=== PATIENT | female | born 1975 | race African-American/Black ===

== ENCOUNTER 2020-05-25 19:24 | Emergency (ER) | payer OTHER, BC ==
[~2020-05-25] VITALS: Ht 160 cm; Wt 112.2 kg
[~2020-05-25 19:24] MED LIST: CIPRO500 MG OR; FLEXERIL OR; MEDDOSEPAK PO; MULTIVITAMI1 PO; NAPROSYN500 MG OR; NO MEDS; NORCO1 TA1 PO; PYRIDIUM200 MG OR; ULTRAM50 M1 OR
[2020-05-25] MEDS ORDERED: MOTRIN800 MG PO (20:43)
[2020-05-25 20:55] VITALS: BP 155/80
== END 2020-05-25 20:55 | disposition home or self-care (01) | DRG 605 ==
LOC: ED 19:24
DX: S40.011A Contusion of right shoulder, initial encounter (principal); S40.021A Contusion of right upper arm, initial encounter; I10 Essential (primary) hypertension; V03.00XA Pedestrian on foot injured in collision with car, pick-up truck or van in nontraffic accident, initial encounter; Y99.0 Civilian activity done for income or pay; Y92.481 Parking lot as the place of occurrence of the external cause

== ENCOUNTER 2020-05-27 18:33 | Emergency (ER) | payer OTHER, BC ==
[~2020-05-27] VITALS: Ht 160 cm; Wt 111.8 kg
[~2020-05-27 18:33] MED LIST changes: +MOTRIN800 MG PO
[2020-05-27] MEDS ORDERED: ORPHENADRINE100 MG PO (19:13)
[2020-05-27] MEDS ORDERED: TORADOL PO (19:13)
[2020-05-27 19:17] VITALS: BP 175/82
== END 2020-05-27 19:49 | disposition home or self-care (01) | DRG 950 ==
LOC: ED 18:33
DX: S40.011D Contusion of right shoulder, subsequent encounter (principal); I10 Essential (primary) hypertension; V09.9XXD Pedestrian injured in unspecified transport accident, subsequent encounter

== ENCOUNTER 2020-08-17 07:13 | Emergency (ER) | payer BC ==
[~2020-08-17] VITALS: Ht 160 cm; Wt 108.9 kg
[~2020-08-17 07:13] MED LIST changes: +ORPHENADRINE100 MG PO; +TORADOL PO
[2020-08-17] MEDS ORDERED: NORVASC PO (07:31)
[2020-08-17] MEDS ORDERED: LIPITOR10 M1 PO (07:32)
[2020-08-17 07:50] LABS: URINE BILIRUBIN - DIPSTICK NEGATIVE (NEGATIVE); URINE BLOOD DIPSTICK SMALL (NEGATIVE); URINE COLOR YELLOW; URINE GLUCOSE - DIPSTICK NEGATIVE (NEGATIVE); URINE KETONE NEGATIVE (NEGATIVE); URINE LEUK ESTERASE NEGATIVE (NEGATIVE); URINE PROTEIN - DIPSTICK NEGATIVE (NEG-TRACE); URINE SPECIFIC GRAVITY 1.025; URINE UROBILINOGEN - DIPSTICK 0.2 E.U./dL (0.2)
[2020-08-17 07:54] LABS: URINE EPITHELIAL CELLS FEW EPI/hpf (0-FEW); URINE NITRITE - DIPSTICK NEGATIVE (Negative); URINE SQUAMOUS EPITHELIAL CELL RARE EPI/hpf (0-FEW); URINE WBC 0-2 WBC/hpf (0-5)
[2020-08-17 08:12] LABS: HEMATOCRIT 36.7 % (37.0-47.0); HEMOGLOBIN 11.7 g/dl (12.0-16.0); IMMATURE GRANULOCYTES 0.3 % (0.0-5.0); MEAN CORPUSCULAR HGB 26.5 pG CALC (26.0-32.0); MEAN CORPUSCULAR HGB CONC 31.9 g/dL CAL (32.0-36.0); NEUT# 5.31 thou/uL (2.00-7.15); RED BLOOD COUNT 4.42 mill/uL (4.20-5.60); RED CELL DISTRI WIDTH 14.5 % (11.5-15.5)
[2020-08-17 08:31] LABS: PROTHROMBIN TIME 10.1 SECONDS (9.0-12.5)
[2020-08-17 08:41] LABS: ALKALINE PHOSPHATASE 69 u/l (38-126); ANION GAP 9 (6-22 (CALC)); BILIRUBIN, TOTAL 0.4 mg/dL (0.0-1.4); BUN 13 mg/dL (7-17); BUN/CREATININE RATIO 20 (12-20 (CALC)); CARBON DIOXIDE 26 mmol/l (22-30); CHLORIDE 103 mmol/l (95-108); CREATININE 0.7 mg/dL (0.5-1.0); GFR > 60 ML/MIN (>=60 (CALC)); GFR FOR AFR.AMER. > 60 ML/MIN (>=60 (CALC)); POTASSIUM 3.6 mmol/l (3.5-5.1); SGOT/AST 22 u/l (14-36); SODIUM 135 mmol/l (137-146); TOTAL PROTEIN 8.2 g/dL (6.3-8.2)
[2020-08-17] MEDS ORDERED: PEPCID20 MG PO (09:41)
[2020-08-17 10:00] VITALS: BP 138/70
== END 2020-08-17 10:00 | disposition home or self-care (01) | DRG 313 ==
LOC: ED 07:13
PROVIDERS: Student in an Organized Health Care Education/Training Program
DX: R07.9 Chest pain, unspecified (principal); I10 Essential (primary) hypertension

== ENCOUNTER 2020-10-27 08:41 | Emergency (ER) | payer BC ==
[~2020-10-27] VITALS: Ht 160 cm; Wt 111.0 kg
[~2020-10-27 08:41] MED LIST changes: +LIPITOR10 M1 PO; +NORVASC PO; +PEPCID20 MG PO
[2020-10-27 10:02] LABS: HEMATOCRIT 39.4 % (37.0-47.0); HEMOGLOBIN 12.4 g/dl (12.0-16.0); IMMATURE GRANULOCYTES 0.3 % (0.0-5.0); MEAN CELL VOLUME 83.3 fL CALC (80.0-100.0); MEAN CORPUSCULAR HGB 26.2 pG CALC (26.0-32.0); MEAN CORPUSCULAR HGB CONC 31.5 g/dL CAL (32.0-36.0); RED BLOOD COUNT 4.73 mill/uL (4.20-5.60); RED CELL DISTRI WIDTH 14.5 % (11.5-15.5)
[2020-10-27 10:04] LABS: URINE BILIRUBIN - DIPSTICK NEGATIVE (NEGATIVE); URINE BLOOD DIPSTICK LARGE (NEGATIVE); URINE GLUCOSE - DIPSTICK NEGATIVE (NEGATIVE); URINE KETONE 15 mg/dL (NEGATIVE); URINE PROTEIN - DIPSTICK 100 mg/dL (NEG-TRACE); URINE SPECIFIC GRAVITY 1.025
[2020-10-27 10:10] LABS: URINE COLOR RED; URINE LEUK ESTERASE MODERATE (NEGATIVE); URINE NITRITE - DIPSTICK POSITIVE (Negative)
[2020-10-27 10:13] LABS: URINE RBC >100 RBC/hpf (0-5)
[2020-10-27 10:20] LABS: ALBUMIN 3.2 g/dL (3.2-5.0); ALKALINE PHOSPHATASE 49 u/l (38-126); BILIRUBIN, TOTAL 0.5 mg/dL (0.0-1.4); BUN 9 mg/dL (7-17); BUN/CREATININE RATIO 18 (12-20 (CALC)); CARBON DIOXIDE 22 mmol/l (22-30); CHLORIDE 110 mmol/l (95-108); CREATININE 0.5 mg/dL (0.5-1.0); GFR > 60 ML/MIN (>=60 (CALC)); GFR FOR AFR.AMER. > 60 ML/MIN (>=60 (CALC)); LIPASE 22 u/l (23-300); SGOT/AST 16 u/l (14-36); SODIUM 136 mmol/l (137-146)
[2020-10-27 10:21] LABS: ANION GAP 7 (6-22 (CALC)); POTASSIUM 3.2 mmol/l (3.5-5.1)
[2020-10-27 10:22] LABS: TOTAL PROTEIN 6.5 g/dL (6.3-8.2)
[2020-10-27 13:56] VITALS: BP 136/76
== END 2020-10-27 13:56 | disposition home or self-care (01) | DRG 761 ==
LOC: ED 08:41
PROVIDERS: Family Medicine
DX: D25.9 Leiomyoma of uterus, unspecified (principal); N32.9 Bladder disorder, unspecified; I10 Essential (primary) hypertension; E66.3 Overweight
CPT/HCPCS: Q9967

== ENCOUNTER 2020-12-15 | Emergency (ER) | payer BC ==
[2020-12-15] MEDS ORDERED: AMOXICILLIN500 MG PO (19:14)
== END 2020-12-15 19:40 | disposition home or self-care (01) | DRG 605 ==
PROC: 0JCR3ZZ Extirpation of Matter from Left Foot Subcutaneous Tissue and Fascia, Percutaneous Approach (ICD-10-PCS; principal; 2020-12-15)
DX: S91.312A Laceration without foreign body, left foot, initial encounter (principal); I10 Essential (primary) hypertension; E78.00 Pure hypercholesterolemia, unspecified; X58.XXXA Exposure to other specified factors, initial encounter

== ENCOUNTER 2020-12-16 | Emergency (ER) | payer BC ==
[~2020-12-16] MED LIST changes: +AMOXICILLIN500 MG PO
== END 2020-12-16 08:00 | disposition home or self-care (01) | DRG 950 ==
DX: S91.312D Laceration without foreign body, left foot, subsequent encounter (principal); I10 Essential (primary) hypertension; X58.XXXD Exposure to other specified factors, subsequent encounter

== ENCOUNTER 2020-12-19 08:39 | Emergency (ER) | payer BC ==
[2020-12-19 09:06] VITALS: BP 138/77
== END 2020-12-19 09:08 | disposition home or self-care (01) | DRG 950 ==
LOC: ED 08:39
DX: S91.312D Laceration without foreign body, left foot, subsequent encounter (principal); I10 Essential (primary) hypertension; X58.XXXD Exposure to other specified factors, subsequent encounter

== ENCOUNTER 2022-04-10 07:40 | Emergency (ER) | payer BC ==
[2022-04-10] VITALS (8 sets, daily range): BP systolic 123–145; BP diastolic 86–102
[~2022-04-10] VITALS: Ht 160 cm; Wt 113.6 kg
[2022-04-10 08:03] LABS: HEMOGLOBIN 10.8 g/dl (12.0-16.0); IMMATURE GRANULOCYTES 0.2 % (0.0-5.0); MEAN CELL VOLUME 80.7 fL CALC (80.0-100.0); MEAN CORPUSCULAR HGB 24.2 pG CALC (26.0-32.0); NEUT# 4.18 thou/uL (2.00-7.15); RED BLOOD COUNT 4.46 mill/uL (4.20-5.60)
[2022-04-10 08:20] LABS: HCG SERUM/URINE (NEG/POS) NEGATIVE (NEGATIVE)
[2022-04-10 08:25] LABS: ALKALINE PHOSPHATASE 68 u/l (38-126); BUN 10 mg/dL (7-17); BUN/CREATININE RATIO 14 (12-20 (CALC)); CHLORIDE 105 mmol/l (95-108); CREATININE 0.7 mg/dL (0.5-1.0); GFR FOR AFR.AMER. > 60 ML/MIN (>=60 (CALC)); GFR OTHER RACES > 60 ML/MIN (>=60 (CALC)); POTASSIUM 3.8 mmol/l (3.5-5.1); SGOT/AST 21 u/l (14-36); SODIUM 136 mmol/l (137-146)
[2022-04-10 08:30] LABS: ALBUMIN 4.1 g/dL (3.2-5.0); ANION GAP 8 (6-22 (CALC)); BILIRUBIN, TOTAL 0.2 mg/dL (0.0-1.4); CARBON DIOXIDE 27 mmol/l (22-30); TOTAL PROTEIN 8.2 g/dL (6.3-8.2)
[2022-04-10] MEDS ORDERED: ZPAK PO (08:48)
== END 2022-04-10 09:36 | disposition home or self-care (01) | DRG 153 ==
LOC: ED 07:40
PROVIDERS: Family Medicine
DX: J06.9 Acute upper respiratory infection, unspecified (principal); E66.9 Obesity, unspecified; I10 Essential (primary) hypertension; Z20.822 Contact with and (suspected) exposure to COVID-19

== ENCOUNTER 2024-04-06 20:28 | Emergency (ER) | payer BC ==
[~2024-04-06] VITALS: Ht 160 cm; Wt 119.0 kg
[~2024-04-06 20:28] MED LIST changes: +ZPAK PO
[2024-04-06 20:55] VITALS: BP 158/86
[2024-04-06 21:01] VITALS: BP 152/80
[2024-04-06] MEDS ORDERED: ASPIRIN 81 MG/TAB PO ONE (21:05)
[2024-04-06 21:24] LABS: BASO% 0.6 % (0-3); EOS% 1.1 % (0-8); HEMATOCRIT 31.5 % (37.0-47.0); HEMOGLOBIN 9.7 g/dl (12.0-16.0); IMMATURE GRANULOCYTES 0.2 % (0.0-5.0); LYMPH% 26.8 % (15-41); MEAN CELL VOLUME 79.7 fL CALC (80.0-100.0); MEAN CORPUSCULAR HGB 24.6 pG CALC (26.0-32.0); MEAN CORPUSCULAR HGB CONC 30.8 g/dL CAL (32.0-36.0); MONO% 4.9 % (2-13); NEUT# 4.19 thou/uL (2.00-7.15); NEUT% 66.4 % (42-76); RED BLOOD COUNT 3.95 mill/uL (4.20-5.60); RED CELL DISTRI WIDTH 18.4 % (11.5-15.5)
[2024-04-06 21:31] VITALS: BP 141/83
[2024-04-06 21:40] LABS: ALBUMIN 4.1 g/dL (3.2-5.0); ALKALINE PHOSPHATASE 69 u/l (38-126); ANION GAP 9 (6-22 (CALC)); BUN 17 mg/dL (7-17); BUN/CREATININE RATIO 21 (12-20 (CALC)); CARBON DIOXIDE 25 mmol/l (22-30); CHLORIDE 108 mmol/l (95-108); CREATININE 0.8 mg/dL (0.5-1.0); ESTIMATED GFR 91 ML/MIN (>=90 (CALC)); LIPASE 67 u/l (23-300); POTASSIUM 3.5 mmol/l (3.5-5.1); SGOT/AST 24 u/l (14-36); SODIUM 139 mmol/l (137-146); TOTAL PROTEIN 7.9 g/dL (6.3-8.2)
[2024-04-06 21:47] LABS: BILIRUBIN, TOTAL 0.3 mg/dL (0.02-1.3)
[2024-04-06 22:01] VITALS: BP 134/78
[2024-04-06 22:31] VITALS: BP 146/78
[2024-04-06 23:01] VITALS: BP 140/76
== END 2024-04-06 23:01 | disposition left against medical advice (07) | DRG 313 ==
LOC: ED 20:28
PROVIDERS: Emergency Medicine
DX: R07.9 Chest pain, unspecified (principal); I10 Essential (primary) hypertension; T46.5X6A Underdosing of other antihypertensive drugs, initial encounter; Z91.128 Patient's intentional underdosing of medication regimen for other reason; Z53.29 Procedure and treatment not carried out because of patient's decision for other reasons

== ENCOUNTER 2024-04-21 07:07 | Day surgery (SDC) | payer BC ==
[~2024-04-21] VITALS: Ht 160 cm; Wt 117.9 kg
[~2024-04-21 07:07] MED LIST changes: +IRON325 M1 PO; +PHENTERMINE37.5 MG PO
[2024-04-21] MEDS ORDERED: LACTATED RINGER'S 1,000 ML IV ONE (07:43)
[2024-04-21] MEDS ORDERED: FAMOTIDINE 10MG/ML 2ML SDV IV ONE (07:43)
[2024-04-21 09:09] VITALS: BP 146/89
[2024-04-21] MEDS ORDERED: GLYCOPYRROLATE 0.2 MG/ML IV ONE (12:30)
[2024-04-21] MEDS ORDERED: LIDOCAINE HCL 2% 2ML SDV IV ONE (12:30)
[2024-04-21] MEDS ORDERED: PROPOFOL 200 MG/20 ML VIAL IV ONE (12:30)
== END 2024-04-21 09:30 | disposition home or self-care (01) | DRG 951 ==
LOC: ENDO 07:07
PROVIDERS: ATTEND Internal Medicine Gastroenterology
PROC: 0DJD8ZZ Inspection of Lower Intestinal Tract, Via Natural or Artificial Opening Endoscopic (ICD-10-PCS; principal; 2024-04-21)
DX: Z12.11 Encounter for screening for malignant neoplasm of colon (principal); I10 Essential (primary) hypertension; F41.9 Anxiety disorder, unspecified